=== PATIENT | female | born 1985 | race Caucasian/White ===

== ENCOUNTER 2016-08-29 15:39 | Emergency (ER) | payer OTHER, BC ==
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
[2016-08-29 16:45] VITALS: RESP 14; TEMP 97.3
[2016-08-29 16:48] LABS: HIV ANTIBODY NEGATIVE (N); HIV-1 P24 ANTIGEN NEGATIVE (N)
== END 2016-08-29 17:19 | disposition home or self-care (01) ==
LOC: ER 15:39
DX: Z20.9 Contact with and (suspected) exposure to unspecified communicable disease (principal); Y99.0 Civilian activity done for income or pay
CPT/HCPCS: 36415; 99282

== ENCOUNTER → 2016-10-07 | Outpatient (CLI) | payer BC ==
[2016-10-07 13:22] LABS: BASOPHILS # (AUTO) 0.01 10*3/UL; BASOPHILS % (AUTO) 0.1 % (0-1); EOSINOPHILS % (AUTO) 1.2 % (0-8); HEMOGLOBIN 13.7 g/dL (12.0-16.0); LYMPHOCYTES # (AUTO) 2.69 10*3/uL; MEAN CORPUSCULAR HEMOGLOBIN 29.9 PG (27-31); MEAN CORPUSCULAR HGB CONC 32.6 g/dL (33-37); MEAN CORPUSCULAR VOLUME 91.7 FL (81-99); MEAN PLATELET VOLUME 9.4 FL (7.4-12.2); MONOCYTES # (AUTO) 0.55 10*3/UL (0.3-0.8); MONOCYTES % (AUTO) 6.4 % (5-15); NEUTROPHILS # (AUTO) 5.21 10*3/UL; NEUTROPHILS % (AUTO) 60.8 % (50-80); RED BLOOD COUNT 4.58 10^6/uL (4.20-5.40)
[2016-10-07 13:50] LABS: BLOOD UREA NITROGEN 17 mg/dL (7-22); BUN/CREATININE RATIO 24.28 (6-20); EST GLOMERULAR FILTRATION > 60 (>60 ml/min/1.73m(2)); SERUM ALBUMIN 4.2 g/dL (3.5-4.8)
[2016-10-07 13:52] LABS: PLATELET MORPHOLOGY COMMENT NORMAL MORPHOLOGY (NORM); RBC MORPHOLOGY COMMENT NORMAL MORPHOLOGY (NORM); WBC MORPHOLOGY COMMENT NORMAL MORPHOLOGY (NORM)
== END ==
LOC: LAB 12:56
PROVIDERS: ATTEND Urology
DX: N30.10 Interstitial cystitis (chronic) without hematuria (principal)
CPT/HCPCS: 36415; 80053; 85025

== ENCOUNTER → 2016-11-30 | Outpatient (CLI) | payer OTHER, BC ==
[2016-11-30 21:36] LABS: HIV ANTIBODY NEGATIVE (N); HIV-1 P24 ANTIGEN NEGATIVE (N)
== END ==
LOC: LAB 20:31
PROVIDERS: ATTEND Family Medicine
DX: Z20.89 Contact with and (suspected) exposure to other communicable diseases (principal)
CPT/HCPCS: 86703; 86803

== ENCOUNTER 2017-05-07 01:01 | Observation (INO) ==
[2017-05-07] MEDS ORDERED: NORMAL SALINE 10 ML SYRINGE FLUSH IVP PRN ×2 (01:38→05:08)
[2017-05-07] MEDS ORDERED: Sodium Chloride 0.9% 1,000 ML PRIMARY IV ONE (01:38)
[2017-05-07 01:54] LABS: BASOPHILS # (AUTO) 0 10*3/UL; BASOPHILS % (AUTO) 0 % (0-1); EOSINOPHILS # (AUTO) 0.09 10*3/UL; EOSINOPHILS % (AUTO) 0.9 % (0-8); Hematocrit [HCT] 43.6 % (37.0-47.0); Hemoglobin [HGB] 14.5 g/dL (12.0-16.0); LYMPHOCYTES # (AUTO) 0.98 10*3/uL; MEAN CORPUSCULAR HEMOGLOBIN 31.3 PG (27-31); MEAN CORPUSCULAR HGB CONC 33.3 g/dL (33-37); MEAN PLATELET VOLUME 9.6 FL (7.4-12.2); MONOCYTES % (AUTO) 4.8 % (5-15); NEUTROPHILS # (AUTO) 8.82 10*3/UL; NEUTROPHILS % (AUTO) 84.7 % (50-80); PLATELET MORPHOLOGY COMMENT NORMAL MORPHOLOGY (NORM); RBC MORPHOLOGY COMMENT NORMAL MORPHOLOGY (NORM); RED BLOOD COUNT 4.64 10^6/uL (4.20-5.40); WBC MORPHOLOGY COMMENT NORMAL MORPHOLOGY (NORM)
[2017-05-07 02:02] LABS: BLOOD UREA NITROGEN 26 mg/dL (7-22); BUN/CREATININE RATIO 37.14 (6-20); LIPASE 106 IU/L (23-300); SERUM ALBUMIN 4.4 g/dL (3.5-4.8)
--- NOTE | 2017-05-07 03:23 | DI ---
EXAM: CT Abdomen and Pelvis With Intravenous Contrast CLINICAL HISTORY: Abdominal pain TECHNIQUE: Axial computed tomography images of the abdomen and pelvis with intravenous contrast. Coronal and sagittal reformatted images were created and reviewed. COMPARISON: 04/30/17 FINDINGS: Lower thorax: No acute findings. ABDOMEN: Liver: Stable hepatic hemangioma. Gallbladder and bile ducts: Unremarkable. No calcified stones. No ductal dilation. Pancreas: Unremarkable. No mass. No ductal dilation. Spleen: Unremarkable. No splenomegaly. Adrenals: Unremarkable. No mass. Kidneys and ureters: Stable small left renal cyst. No hydronephrosis. Stomach and bowel: High density focus in the gastric antrum. Moderate colonic stool burden, with mild fluid component. Somewhat irregular shape tubular structure within the lower pelvis with fluid level measuring a width of 4.2 cm. This may represent a loop of dilated small bowel indicating focal ileus. Regional crowding of structures limits characterization. No mucosal thickening. Appendix: The appendix appears retrocecal, partially visualized and without significant inflammatory changes. PELVIS: Bladder: Unremarkable. No mass. Reproductive: Unremarkable as visualized. ABDOMEN and PELVIS: Intraperitoneal space: Mild free fluid. No free air. Bones/joints: No acute fracture. No dislocation. Soft tissues: Unremarkable. Vasculature: Unremarkable. No abdominal aortic aneurysm. Lymph nodes: Mildly prominent though subcentimeter mesenteric lymph nodes. IMPRESSION: 1. Somewhat irregular shape tubular structure in the rightward central pelvis with fluid level, which may be a dilated loop of small bowel, indicating focal ileus. Pelvic fluid collection also not excluded, as crowding of the regional structures makes characterization limited. I would suggest follow-up CT after delayed oral contrast administration. 2. Moderate colonic stool burden. Correlate for constipation. 3. Nonspecific high density focus within the gastric antrum. Correlate for recent calcified or high density material ingestion.
[2017-05-07 03:41] LABS: CLARITY,URINE CLEAR (CLEAR); COLOR,URINE YELLOW (Y); GLUCOSE, URINE (UA) NEGATIVE (NEG); NITRATE,URINE NEGATIVE (NEG); OCCULT BLOOD,URINE NEGATIVE (NEG); PH,URINE 7.5 (5.0-8.5); PROTEIN,URINE NEGATIVE (NEG); URINE SAMPLE TYPE CLEAN CATCH URINE
[2017-05-07 03:42] LABS: BILIRUBIN,URINE NEGATIVE (NEG); UROBILINOGEN,URINE 0.2 EU/dL (0.2)
[2017-05-07] MEDS ORDERED: ONDANSETRON 4 MG/2 ML VIAL IVP ONE (04:00)
[2017-05-07] MEDS ORDERED: ONDANSETRON 4 MG/2 ML VIAL ONE (04:04)
--- NOTE | 2017-05-07 04:35 | PDOC ---
Abdomen/Flank HPI - General Chief Complaint: Abdomen Pain Stated Complaint: ABDOMEN PAIN Date Seen by Provider: 05/07/17 Time Seen by Provider: 01:20 Source: POSITIVE: Patient, Old records Exam Limitations: POSITIVE: No limitations Nurse's Notes Reviewed & Considered: Yes - History of Present Illness Initial Comments: The patient is a 31-year-old female. She states that for the past 7 or 8 days she has had pain in the abdomen, poorly localized. She states that she was seen in the open access clinic one week ago and had a CT scan of the abdomen and pelvis with IV contrast, which was reportedly normal. Patient has had a hysterectomy with sparing of the tubes and ovaries. She's also had an abdominal plasty and 2 sections. History of interstitial cystitis and history of a pituitary tumor. No associated fevers or chills. She states that she's not had a bowel movement for a few days. This evening she began to have some nausea and vomiting. She last ate around 1930 and had spaghetti at that time. No hematemesis, diarrhea, hematochezia, melena, dysuria, or hematuria. No fevers. Body Location Affected: REPORTS: Abdomen Timing: REPORTS: Constant, Getting Worse Duration: >1 week (Approximately one week) Severity: Moderate Quality: REPORTS: "Pain" Abdominal Pain Onset Location: REPORTS: Periumbilical Abdominal Pain Radiation: REPORTS: No radiation Context: REPORTS: None Modifying Factors: improves with: Vomiting (A couple of episodes of vomiting this evening.) Associated Symptoms: REPORTS: Vomiting, Constipation. DENIES: Denies symptoms, Back pain, Bloody Emesis, Chest pain, Coffee Grounds Emesis, Chills, Diaphoresis , Fever, Fatigue, Headache, Heartburn, Loss of Appetite, Nausea, Rash, Shortness of breath, Swelling/mass in abdomen, Syncope, Testicular Pain, Weakness, Grossly Bloody Diarrhea, Diarrhea, Dysuria, Incontinent Stool, Incontinent Urine, Mucous Diarrhea, Difficulty Walking, Dizziness, Light Headedness, Numbness, Other Similar Symptoms Previously: No Recent Care Received: REPORTS: Recently Seen, Treated by MD Any Prior Injuries Related to Current Complaint?: No - Patient Home Medications Home Medications: Home Medications Hydroxyzine Pamoate [Vistaril] 25 mg PO TID cap 01/09/16 Oxybutynin Chloride 5 mg PO DAILY tab 03/04/16 Propranolol HCl [Inderal] 40 mg PO DAILY 08/29/16 cabergoline 0.5 mg tablet 0.5 mg PO 2XW 02/15/17 cholecalciferol (vitamin D3) 400 unit capsule 400 unit PO QDAY 04/15/17 citalopram 10 mg tablet 10 mg PO QDAY 04/15/17 ergocalciferol (vitamin D2) 50,000 unit capsule 50,000 unit PO QWEEK cap omega-3 fatty acids 1,000 mg capsule 1,000 mg PO QDAY 04/15/17 vit 123-iron 28 mg-folic acid 800 [id number] 235 mg capsule 1 cap PO QDAY 04/15/17 Cabergoline 0.5 mg PO .TWICE A WEEK 05/07/17 - Patient Allergies Allergies/Adverse Reactions: Allergies 3 Allergy/AdvReac Type Severity Reaction Status Date / Time gentamicin Allergy Intermediate SWELLING Verified 05/07/17 02:02 bupropion HCl AdvReac Intermediate muscle and Verified 05/07/17 02:02 [From Wellbutrin] joint pain Past Medical History - heen HEENT History: Denies History Cardiovascular History: Denies History Respiratory History: Denies History Gastrointestinal History: Denies History Genitourinary History: Cystitis Endocrine History: Denies History Additional Endocrine History: 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. takes Dostinex (cabergoline) twice week now Musculoskeletal History: Denies History Prosthesis or Implant: No Neurological History: Migraines Additional Neurological History: pituitary tumor Blood Disorders: Denies History Psychiatric History: Depression History of Sexually Transmitted Diseases: No Female Reproductive History: Hysterectomy Cancer History: Denies History In Past Year Been Physically Harmed or Verbally Threatened: No History of MDRO: No History of Other Communicable Diseases: No Tobacco Use: Never Smoker Alcohol Use: None In the Past 12 Months, Have Used or Abuse Any Substance: None Previous Surgical History: Yes Type / Date of Surgery: C SECTION X 2/ TUMMY TUCK/ TUBAL Anesthesia Reactions: No Malignant Hyperthermia: No Significant Family History: No pertinent family hx, Hypertension Additional Family History: FATHER-HTN Past Medical History Reviewed: Reviewed - No Changes ROS - Limitations ROS Limitations: No Limitations Constitution: REPORTS: Denies Symptoms Cardiovascular: REPORTS: Denies Cardiac Symptoms Respiratory: REPORTS: Denies Resp Symptoms Neurological: REPORTS: Denies Neuro Symptoms Gastrointestinal: REPORTS: Abdominal Pain, Nausea, Vomitting Endocrine: REPORTS: Denies Symptoms Musculoskeletal: REPORTS: Denies MS Symptoms Genitourinary: REPORTS: Denies Symptoms Eyes: REPORTS: Denies Symptoms ENT: REPORTS: Denies Symptoms Skin: REPORTS: Denies Skin Symptoms Lympathic: REPORTS: Denies Lympathic Symptoms Immunologic: POSITIVE: Denies Symptoms Psychiatric: POSITIVE: Denies Psych Symptoms Abdominal/Flank Pain PE - General Appearance General Appearance: POSITIVE: Alert, Cooperative, No Evidence of Trauma. NEGATIVE: Mild Distress - HEENT HEENT: POSITIVE: Head Inspection Nml, Eyes Inspection Nml, Ears Inspection Nml, Nose Inspection Nml, Oral/Dental Inspect. Nml, Pharynx Inspect. Nml, PERRL, EOMI - Neck Neck: POSITIVE: Normal Inspection, No Apparent Injury - Respiratory Respiratory: POSITIVE: No Respiratory Distress, Breath Sounds Normal, Chest Non- Tender - Cardiovascular Cardiovascular: POSITIVE: Regular Rate and Rhythm, Heart Sounds Normal, Equal Pulses, Strong Pulses Peripheral Pulses: Radial (R): 2+, Radial (L): 2+ - Chest Chest: POSITIVE: Non Tender - Abdomen Abdomen: Soft: (All Quadrants), Normal Bowel Sounds: (All Quadrants), No Splenomegaly: (All Quadrants), No Hepatomegaly: (All Quadrants), No Guarding: ( All Quadrants), No Rebound: (All Quadrants), No Palpable Pulse: (All Quadrants) , No Palpabale Mass: (All Quadrants), No Distention: (All Quadrants), No Rigidity: (All Quadrants), Tenderness Noted: (All Quadrants) Additional Abdominal Details: Abdominal examination shows bowel sounds to be active. Patient expresses some poorly localized abdominal discomfort over the paraumbilical area and both lower abdominal quadrants. No masses, organomegaly or rebound. - Genital / Rectal Pelvic: POSITIVE: Bimanual Exam Normal, Adnexal Tenderness (R), Adnexal Tenderness (L). NEGATIVE: Adnexal Mass (R), Adnexal Mass (L) (Status post hysterectomy. Patient does express some discomfort on palpation over both adnexal areas) Rectal: POSITIVE: Non Tender, Normal Rectal Tone, Heme Negative Stool. NEGATIVE : Fecal Impaction - Back Back: POSITIVE: Normal Inspection - Skin Skin: POSITIVE: Intact, Normal For Race, Warm, Dry, No Rash - Extremities Extremity: Non-Tender: (All Extremities), Normal ROM: (All Extremities), Normal Inspection: (All Extremities) - Neurological Neurological: POSITIVE: Oriented X3, cone runner Normal As Tested, Motor Normal, Sensation Normal, 5, 6 - Psychological Psychiatric: POSITIVE: Affect Appropriate, Mood Appropriate Images - Complete Complete: 1 - Area of described pain Abdomen Progress - Results Reviewed by me Xrays/CTs/US Reviewed by me: Yes Discussed with Radiologist: Yes Radiology Findings: CT scan abdomen and pelvis with IV contrast "is read by radiologist as showing" somewhat irregular shaped tubular structure within the lower pelvis with fluid level measuring 4.2 cm. This may represent a loop of dilated small bowel". Also possibly hydrosalpinx. Lab Results Reviewed by Me: Yes (amylase lipase normal; UA normal) CBC and BMP: 05/07/17 01:45 05/07/17 01:45 - Patient's Progress Pain Medication Addressed: POSITIVE: Patient Refused School/Work Release Addressed: POSITIVE: Not Applicable Re-examine Time: 04:00 Re-Examine Comment: Unchanged. Patient declines analgesia but it except Zofran , 4 mg IV for nausea. Status: POSITIVE: Unchanged, Re-Examined - Consult Consult (If Yes, Name of Consulting MD & Time Called): Yes (Dr. Villarreal 4:15 a.m.; Dr. Rojo 4:20 AM) Consulting MD will see pt:: POSITIVE: [facility] [place] Admit Counseled: POSITIVE: Patient, RE: Lab Results, RE: Radiology Results, RE: DX, RE : Need for F/U Patient Care Time - Estimated PCT Patient Care Time (In Minutes): 60 Vital Signs - Recent Vital Signs Vital Signs: Vital Signs (Last 8 hours) Temp Pulse Resp BP Pulse Ox 05/07/17 01:20 97.4 F 94 14 121/85 95 - VS Reviewed Vital Signs Reviewed: Yes Discharge Clinical Impression: Abdominal pain Discharge Disposition: Admit to Inpatient Condition: Fair Follow Up With: EVENS GREENE [Primary Care Provider] - Date Decision to Admit to Inpatient: 05/07/17 Time Decision to Admit to Inpatient: 04:00
[2017-05-07] MEDS ORDERED: ONDANSETRON 4 MG/2 ML VIAL IVP PRN (05:08)
[2017-05-07] MEDS ORDERED: MORPHINE SULFATE 2 MG/1 ML IVP PRN (05:08)
[2017-05-07] MEDS ORDERED: CABERGOLINE 0.5 MG PO SCH (05:08)
[2017-05-07] MEDS ORDERED: LIDOCAINE W/ SODIUM BICARB 0.5 ML SYR SUBD PRN (05:08)
[2017-05-07 05:10] VITALS: RESP 20
[2017-05-07] MEDS: Sodium Chloride 0.9% 1,000 ML PRIMARY IV SCH ×2 (05:38→17:36)
--- NOTE | 2017-05-07 07:13 | PDOC ---
HPI - History of Present Illness Date of Service: 05/07/17 Time of Service: 07:00 Chief Complaint: Abdominal pain and vomiting with constipation of one-week duration History of Present Illness: This is a 31 years old female with medical history significant for history of pituitary tumor, prolactinoma, on medical treatment, migraines, anxiety and interstitial cystitis who came into the hospital because of abdominal pain and vomiting. Her pain probably started a week ago she said was a discomfort in the lower abdomen associated with nausea she's been also constipated. she went to the open access clinic last week was thinking maybe she had a urinary tract infection she had a CT of the abdomen with IV contrast which was normal she was told that she had constipation she started to take [id number] medications however she did not have a bowel movement yet. Last night she started to vomit she vomited multiple 7 times and because of that she came into the ER. Her pain is mainly in the lower part of the abdomen she said when she was vomiting though it felt all over. Pain sometimes increased when she tried to have a bowel movement and with certain positions. She is passing small amount of gas. In the ER she had CT scan of the abdomen after getting Zofran the CT showed an irregular shaped tubular structure within the lower pelvis with fluid level measuring 4.2 cm this may represent a loop of dilated small bowel. The case was discussed with Dr. Tafoya the surgeon who suggested admission. Currently she doesn't have pain mild nausea no other symptoms. There is no dysuria currently. No fever or chills. Past Medical History Medical History: 1. Anxiety. 2. Migraine. 3. Prolactinoma diagnosed in 2007. 4. Interstitial cystitis Surgical History: 1. Status post hysterectomy. 2. Status post loop electrosurgical excision procedure in 2011. 3. C-sections Family History: Reviewed an Not Pertinent Past Social History: Doesn't smoke doesn't drink no drugs. Tobacco Use: Never Smoker In the Past 12 Months, Have Used or Abuse Any of the Following Substance: None Alcohol Use: None Medication / Allergies Home Medications: Home Medications Medication Instructions Recorded Confirmed Type Hydroxyzine Pamoate [Vistaril] 25 mg PO TID cap 01/09/16 05/07/17 History Oxybutynin Chloride 5 mg PO DAILY tab 03/04/16 05/07/17 History Propranolol HCl [Inderal] 40 mg PO DAILY 08/29/16 05/07/17 History cabergoline 0.5 mg tablet 0.5 mg PO 2XW 02/15/17 05/07/17 History cholecalciferol (vitamin D3) 400 400 unit PO QDAY 04/15/17 05/07/17 History unit capsule citalopram 10 mg tablet 10 mg PO QDAY 04/15/17 05/07/17 History ergocalciferol (vitamin D2) 50,000 50,000 unit PO QWEEK cap 04/15/17 05/07/17 History unit capsule omega-3 fatty acids 1,000 mg 1,000 mg PO QDAY 04/15/17 05/07/17 History capsule vit 123-iron 28 mg-folic 1 cap PO QDAY 04/15/17 05/07/17 History acid 800 [id number] 235 mg capsule Cabergoline 0.5 mg PO .TWICE A WEEK 05/07/17 05/07/17 History Allergies/Adverse Reactions: Allergies 3 Allergy/AdvReac Type Severity Reaction Status Date / Time gentamicin Allergy Intermediate SWELLING Verified 05/07/17 02:02 bupropion HCl AdvReac Intermediate muscle and Verified 05/07/17 02:02 [From Wellbutrin] joint pain Review of Systems - Review of Systems All Systems: Reviewed & No Additional Complaints Except as Stated Exam - Vitals Vital Signs: Vital Signs Temperature 97.6 F Temperature Source Temporal Artery Scan Pulse Rate [Pulse Oximeter] 94 Respiratory Rate 20 Blood Pressure [Right Arm] 103/83 Blood Pressure [Left Arm] 104/70 Pulse Ox 95 Oxygen Delivery Method Room Air Height 5 ft 4 in Weight 155 lb 6.4 oz - General General Appearance: No Acute Distress, Cooperative - Head Head Exam: Normal Inspection, Atraumatic - Eye Eye Exam: POSITIVE: Normal Appearance - ENT ENT Exam: POSITIVE: Normal Exam - Neck Neck Exam: Normal Inspection - Respiratory Respiratory Exam: POSITIVE: Clear to Auscultation - Bilaterally - Cardiovascular Cardiovascular Exam: POSITIVE: RRR - GI/Abdominal Additional GI/Abdominal Exam Details: Abdomen is soft, no organomegaly. Tenderness felt in the mid lower abdomen. Bowel sounds sluggish. - Rectal Rectal Exam: POSITIVE: Deferred - External Exam: POSITIVE: Deferred - Extremities Extremities Exam: POSITIVE: Normal Inspection - Back Back Exam: POSITIVE: Normal Inspection - Neurological Neurological Exam: POSITIVE: Alert, Oriented x 3, CN II-XII Intact, No Facial Droop, Speech Intact / Clear, Moves All Extremities Equally - Psychiatric Psychiatric Exam: POSITIVE: Normal Affect - Integumentary Integumentary Exam: POSITIVE: Normal Color Results - Labs CBC and BMP: 05/07/17 01:45 05/07/17 01:45 - Imaging Status: Report Reviewed by Me (Somewhat irregular shape tubular structure in the rightward central pelvis with fluid level, which may be a dilated loop of small bowel, indicating focal ileus. Pelvic fluid collection also not excluded , as crowding of the regional structures makes characterization limited.) Assessment and Plan - Patient Problems (1) Abdominal pain Current Visit: Yes Status: Acute Comment: Etiology of the pain is not clear, there may be a focal ileus present versus a fluid collection. We'll do ultrasound of the pelvis will speak with the surgeon may consider repeat CT with oral contrast. I did write for pain medications and anti-emetics Code(s): R10.9 - Unspecified abdominal pain (2) Anxiety Current Visit: No Status: Chronic Comment: Same medications Code(s): F41.9 - Anxiety disorder, unspecified
[2017-05-07] MEDS: ACETAMINOPHEN 325 MG TABLET PO PRN ×2 (07:40→17:34)
--- NOTE | 2017-05-07 08:56 | DI ---
EXAM: US Pelvis Complete, Transabdominal. US Pelvis, Transvaginal. CLINICAL HISTORY: Pelvic abnormality seen on CT. TECHNIQUE: Real-time transabdominal and transvaginal pelvic ultrasound (complete) with image documentation. Transvaginal imaging was used for better evaluation of the endometrium and adnexa. COMPARISON: 04/01/13 FINDINGS: Uterus/cervix: Uterus is surgically absent. Vaginal cuff is grossly unremarkable. Right ovary: The right ovary measures 3.1 x 3.7 x 3.1 cm. There is a 2. 8 cm simple appearing right ovarian cyst. Normal blood flow seen to the right ovary. Left ovary: The left ovary is not visualized within the left adnexum. Free fluid: No free fluid. IMPRESSION: Status post hysterectomy. Nonvisualization of the left ovary, which may be obscured due to bowel gas. Please correlate if patient is status post left-sided salpingo-oophorectomy as well. Simple appearing right ovarian cyst. Normal right ovarian blood flow.
[2017-05-07] MEDS ORDERED: HYDROXYZINE PAMOATE 25 MG CAPSULE PO SCH (09:00)
[2017-05-07] MEDS ORDERED: Oxybutynin ER Tab 5 MG TAB PO SCH (09:00)
[2017-05-07] MEDS ORDERED: CITALOPRAM 20 MG TABLET PO SCH (09:00)
[2017-05-07] MEDS ORDERED: Propranolol Tab 40 MG TAB PO SCH (09:00)
[2017-05-07] MEDS ORDERED: HYDROXYZINE PAMOATE 25 MG CAPSULE PO PRN (09:04)
[2017-05-07] MEDS ORDERED: BISACODYL 10 MG SUPPOSITORY RECTAL ONE (10:09)
--- NOTE | 2017-05-07 10:28 | CONSULT ---
Consult Note - Consult Consult Date: 05/07/17 Reason for Consult: PreOp Consulation : General Surgery Requesting Physician: Dr. Rojo Primary Care Provider: [facility] - History of Present Illness History of Present Illness: This is a 31-year-old female been asked to evaluate for abdominal pain. Patient reports not having a bowel movement in over a week. She was seen last week in the walk-in clinic for constipation. She had a CT scan of that time which was unremarkable. Patient was started on oral MiraLAX and mag citrate for the constipation. Patient developed abdominal pain nausea and vomiting. Her laboratory values were completely unremarkable (please see in EMR). Patient had a repeat CT scan which was read as possible tubular structure in the abdomen. Patient's had abdominal hysterectomy with salpingo-oophorectomy. Did get an ultrasound that showed a right ovarian cyst no tubular structures. Had a second radiologist that the CT scan and they do not see anything they are worried about. Past Medical History Medical History: 1. Anxiety. 2. Migraine. 3. Prolactinoma diagnosed in 2007. 4. Interstitial cystitis Surgical History: 1. Status post hysterectomy. 2. Status post loop electrosurgical excision procedure in 2011. 3. C-sections Family History: Reviewed an Not Pertinent Past Social History: Doesn't smoke doesn't drink no drugs. Tobacco Use: Never Smoker In the Past 12 Months, Have Used or Abuse Any of the Following Substance: None Alcohol Use: None Medication / Allergies Home Medications: Home Medications Medication Instructions Recorded Confirmed Type Hydroxyzine Pamoate [Vistaril] 25 mg PO TID cap 01/09/16 05/07/17 History Oxybutynin Chloride 5 mg PO DAILY tab 03/04/16 05/07/17 History Propranolol HCl [Inderal] 40 mg PO DAILY 08/29/16 05/07/17 History cabergoline 0.5 mg tablet 0.5 mg PO 2XW 02/15/17 05/07/17 History cholecalciferol (vitamin D3) 400 400 unit PO QDAY 04/15/17 05/07/17 History unit capsule citalopram 10 mg tablet 10 mg PO QDAY 04/15/17 05/07/17 History ergocalciferol (vitamin D2) 50,000 50,000 unit PO QWEEK cap 04/15/17 05/07/17 History unit capsule omega-3 fatty acids 1,000 mg 1,000 mg PO QDAY 04/15/17 05/07/17 History capsule vit 123-iron 28 mg-folic 1 cap PO QDAY 04/15/17 05/07/17 History acid 800 [id number] 235 mg capsule Cabergoline 0.5 mg PO .TWICE A WEEK 05/07/17 05/07/17 History Allergies/Adverse Reactions: Allergies 3 Allergy/AdvReac Type Severity Reaction Status Date / Time gentamicin Allergy Intermediate SWELLING Verified 05/07/17 02:02 bupropion HCl AdvReac Intermediate muscle and Verified 05/07/17 02:02 [From Wellbutrin] joint pain Results - Labs CBC and BMP: 05/07/17 01:45 05/07/17 01:45 Exam - Vitals Vital Signs: Vital Signs Temperature 97.8 F Temperature Source Temporal Artery Scan Pulse Rate [Pulse Oximeter] 75 Respiratory Rate 20 Blood Pressure [Right Arm] 88/55 Blood Pressure [Left Arm] 104/70 Pulse Ox 95 Oxygen Delivery Method Room Air Height 5 ft 4 in Weight 155 lb 6.4 oz - General General Appearance: No Acute Distress, Cooperative - GI/Abdominal GI/Abdominal Exam: POSITIVE: Normal Bowel Sounds, Non Tender, Non Distended, Soft Assessment and Plan - Patient Problems (1) Constipation Current Visit: Yes Status: Acute Code(s): K59.00 - Constipation, unspecified - Assessment / Plan Additional Assessment/Plan Details: I believe the patient is constipated. Will get her started with a Dulcolax suppository followed by soapsuds enema. Patient may need a colonoscopy as an outpatient
[2017-05-07] MEDS ORDERED: LACTULOSE 20 GM PACKET PO SCH (15:15)
[2017-05-07 17:00] VITALS: BP 94/57; TEMP 97.4; O2SAT 95
--- NOTE | 2017-05-07 17:56 | DCSUMMARY ---
Hospitalization Summary Admit Date: 05/07/2017 Discharge Date: 05/07/17 Hospital Course: Discharge diagnoses 1. Abdominal pain and the vomiting resolved 2. Constipation 3. History of pituitary tumor 4. History of migraines 5. History of anxiety 6. history of interstitial cystitis Hospital course This is a 31 years old female with medical history significant for history of pituitary tumor, prolactinoma, on medical treatment, migraines, anxiety and interstitial cystitis who came into the hospital because of abdominal pain and vomiting. Her pain probably started a week ago she said. It was a discomfort in the lower abdomen associated with nausea she's been also constipated. she went to the open access clinic last week was thinking maybe she had a urinary tract infection she had a CT of the abdomen with IV contrast which was normal she was told that she had constipation she started to take [id number] medications however she did not have a bowel movement yet. Last night she started to vomit she vomited multiple 7 times and because of that she came into the ER. Her pain is mainly in the lower part of the abdomen she said when she was vomiting though it felt all over. Pain sometimes increased when she tried to have a bowel movement and with certain positions. She is passing small amount of gas. In the ER she had CT scan of the abdomen after getting Zofran the CT showed an irregular shaped tubular structure within the lower pelvis with fluid level measuring 4.2 cm this may represent a loop of dilated small bowel. The case was discussed with Dr. Tafoya the surgeon who suggested admission. When I saw her she did not have pain, had mild nausea no other symptoms. There was no dysuria . No fever or chills., Her examination showed tenderness in the lower abdomen below the umbilicus. We did a pelvic ultrasound which showed right ovarian cyst. No other abnormalities. She was seen by Dr. Tafoya who suggested an enema and suppository she had a bowel movement after that gave also some lactulose had another small bowel movement. I checked on her again and she said the pain is much improved no nausea she tolerated the diet. Her exam also improved there was no more tenderness like she had earlier morning. So we thought that she could be discharged home try prunes 5-6 times a day and see whether that would help her regulate her bowels. I wrote a prescription for lactulose as needed. She will follow-up with the Dr. Tafoya as an outpatient to consider colonoscopy. Abnormal Lab Results (Last 24 Hours) Laboratory Results 05/07/17 05/07/17 05/07/17 Range/Units 01:45 01:45 02:30 WBC 10.41 (4.8-10.8) 10^3/uL RBC 4.64 (4.20-5.40) 10^6/uL Hgb 14.5 (12.0-16.0) g/dL Hct 43.6 (37.0-47.0) % MCV 94.0 (81-99) FL MCH 31.3 H (27-31) PG MCHC 33.3 (33-37) g/dL RDW Std Deviation 43.0 (39-50) fL RDW Coeff of Lenin 12.9 (11.5-14.5) % Plt Count 244 (140-350) 10*3/uL MPV 9.6 (7.4-12.2) FL Immature Gran % (Auto) 0.2 (0-5) % Neut % (Auto) 84.7 H (50-80) % Lymph % (Auto) 9.4 L (10-50) % Mellette % (Auto) 4.8 L (5-15) % Eos % (Auto) 0.9 (0-8) % Baso % (Auto) 0 (0-1) % Immature Gran # (Auto) 0.02 10*3/UL Neut # (Auto) 8.82 10*3/UL Lymph # (Auto) 0.98 10*3/uL Mellette # (Auto) 0.50 (0.3-0.8) 10*3/UL Eos # (Auto) 0.09 10*3/UL Baso # (Auto) 0 10*3/UL WBC Morphology Comment Normal morphology (NORM) Plt Morphology Comment Normal morphology (NORM) RBC Morph Comment Normal morphology (NORM) Sodium 143 (135-145) meq/L Potassium 4.0 (3.8-5.2) meq/L Chloride 104 (98-112) meq/L Carbon Dioxide 29 (23-33) meq/L Anion Gap 10 (5-20) BUN 26 H (7-22) mg/dL Creatinine 0.7 (0.50-1.20) mg/dL Estimated GFR > 60 (>60 ml/min/1.73m(2)) BUN/Creatinine Ratio 37.14 H (6-20) Glucose 91 (78-110) mg/dL Calculated Osmolality 300.0 H (267-292) mOsm/kg Calcium 9.1 (8.7-10.7) mg/dL Total Bilirubin 0.5 (0.3-1.2) mg/dL AST 23 (8-39) IU/L ALT 30 (9-52) IU/L Alkaline Phosphatase 45 (38-126) IU/L Total Protein 7.7 (6.1-8.0) g/dL Albumin 4.4 (3.5-4.8) g/dL Globulin 3.3 (2.50-4.10) g/dL Albumin/Globulin Ratio 1.30 (1.3-2.0) mg/g Amylase 65 (30-110) U/L Lipase 106 (23-300) IU/L Ur Collection Type Clean catch urine Urine Color Yellow (Y) Urine Clarity Clear (CLEAR) Urine pH 7.5 (5.0-8.5) Ur Specific Benton 1.010 (1.005-1.030) Urine Protein Negative (NEG) mg/dl Urine Glucose (UA) Negative (NEG) mg/dL Urine Ketones Negative (NEG) Urine Occult Blood Negative (NEG) Urine Nitrate Negative (NEG) Urine Bilirubin Negative (NEG) Urine Urobilinogen 0.2 (0.2) EU/dL Ur Leukocyte Esterase Negative (NEG) Ur Culture Indicated? Culture not set Discharge instruction Diet regular Activity as started Medications Home Medications Medication Instructions Recorded Confirmed Type Hydroxyzine Pamoate [Vistaril] 25 mg PO TID cap 01/09/16 05/07/17 History Oxybutynin Chloride 5 mg PO DAILY tab 03/04/16 05/07/17 History Propranolol HCl [Inderal] 40 mg PO DAILY 08/29/16 05/07/17 History cabergoline 0.5 mg tablet 0.5 mg PO 2XW 02/15/17 05/07/17 History cholecalciferol (vitamin D3) 400 400 unit PO QDAY 04/15/17 05/07/17 History unit capsule citalopram 10 mg tablet 10 mg PO QDAY 04/15/17 05/07/17 History ergocalciferol (vitamin D2) 50,000 50,000 unit PO QWEEK cap 04/15/17 05/07/17 History unit capsule omega-3 fatty acids 1,000 mg 1,000 mg PO QDAY 04/15/17 05/07/17 History capsule vit 123-iron 28 mg-folic 1 cap PO QDAY 04/15/17 05/07/17 History acid 800 [id number] 235 mg capsule Acetaminophen [Tylenol] 650 mg PO Q6H PRN tab 05/07/17 Rx Cabergoline 0.5 mg PO .TWICE A WEEK 05/07/17 05/07/17 History Lactulose Packet [Kristalose 20 gm PO BID PRN #15 packet 05/07/17 Rx Packet] Follow-up with PCP in 1-2 weeks, follow-up with Dr. Tafoya in 1-2 weeks Condition at discharge was stable for discharge Exam - Vitals Vital Signs: Vital Signs Temperature 97.4 F Temperature Source Temporal Artery Scan Pulse Rate [Pulse Oximeter] 76 Respiratory Rate 20 Blood Pressure [Right Arm] 94/57 Blood Pressure [Left Arm] 104/70 Pulse Ox 95 Oxygen Delivery Method Room Air Height 5 ft 4 in Weight 155 lb 6.4 oz Patient Problems - Patient Problem List (1) Abdominal pain Current Visit: Yes Status: Acute Code(s): R10.9 - Unspecified abdominal pain Category: Medical (2) Anxiety Current Visit: No Status: Chronic Code(s): F41.9 - Anxiety disorder, unspecified Category: Medical
== END 2017-05-07 19:50 | disposition home or self-care (01) ==
LOC: ER 01:01 → MED/SURG 04:40 → INTOOBSV 04:40
PROVIDERS: ADMIT Internal Medicine; ATTEND Internal Medicine